=== PATIENT | male | born 1960 | race Caucasian/White ===

== ENCOUNTER 2016-08-16 22:21 | Emergency (ER) | payer OTHER ==
[2016-08-17] MEDS ORDERED: KEFLEX500 M4 PO (00:08)
== END 2016-08-17 01:06 ==
LOC: EDMED 22:21
PROC: 0HQFXZZ Repair Right Hand Skin, External Approach (ICD-10-PCS; principal; 2016-08-17)
DX: S61.411A Laceration without foreign body of right hand, initial encounter (principal); L08.9 Local infection of the skin and subcutaneous tissue, unspecified; W24.0XXA Contact with lifting devices, not elsewhere classified, initial encounter; Y92.69 Other specified industrial and construction area as the place of occurrence of the external cause; Y99.0 Civilian activity done for income or pay